=== PATIENT | male | born 1970 | race Caucasian/White ===

== ENCOUNTER 2017-07-27 16:18 | Emergency (ER) | payer MEDICAID ==
[~2017-07-27] VITALS: Ht 172.7 cm; Wt 73.0 kg
[2017-07-27 18:47] VITALS: BP 129/81
== END 2017-07-27 18:51 | disposition home or self-care (01) ==
LOC: ER 17:31
DX: S92.351A Displaced fracture of fifth metatarsal bone, right foot, initial encounter for closed fracture (principal); J45.909 Unspecified asthma, uncomplicated; F17.200 Nicotine dependence, unspecified, uncomplicated; X58.XXXA Exposure to other specified factors, initial encounter; Y93.02 Activity, running; Y92.89 Other specified places as the place of occurrence of the external cause; Y99.8 Other external cause status; Z88.0 Allergy status to penicillin
CPT/HCPCS: 29515; 73610; 73630; 99284

== ENCOUNTER 2018-02-14 23:35 | Emergency (ER) | payer MEDICAID ==
[~2018-02-14] VITALS: Ht 167.6 cm; Wt 72.0 kg
[2018-02-15 02:45] LABS: CHLORIDE 108 mEq/L (98-107); HEMATOCRIT 44.8 % (42.0-52.0); HEMOGLOBIN 15.1 g/dL (14.0-18.0); MEAN CORPUSCULAR HEMOGLOBIN 32.3 pg (28.0-32.0); MEAN CORPUSCULAR VOLUME 95.5 fL (80.0-94.0); PLATELET 284 x1000/uL (130-400); RED BLOOD CELL COUNT 4.69 mill/uL (4.7-6.1); RED CELL DISTRIBUTION WIDTH 13.4 % (11.6-14.6)
[2018-02-15 05:39] VITALS: BP 122/75
== END 2018-02-15 05:41 | disposition home or self-care (01) ==
LOC: ER 23:35
DX: R07.89 Other chest pain (principal); J45.909 Unspecified asthma, uncomplicated; F17.200 Nicotine dependence, unspecified, uncomplicated
CPT/HCPCS: 36415; 71045; 84484; 85027; 93005; 99284

== ENCOUNTER 2021-08-25 16:41 | Emergency (ER) | payer MEDICAID ==
[~2021-08-25] VITALS: Ht 167.6 cm; Wt 65.0 kg
[2021-08-25 16:57] VITALS: BP 126/82
[2021-08-25 17:40] LABS: BASOPHILS % 1.4 % (0.0-2.0); EOSINOPHILS % 8.2 % (0.0-5.0); HEMATOCRIT. 40.3 % (42.0-52.0); HEMOGLOBIN. 13.6 g/dL (14.0-18.0); LYMPHOCYTES % 31.6 % (20.0-50.0); MEAN CORPUSCULAR HEMOGLOBIN 33.4 pg (28.0-32.0); MEAN PLATELET VOLUME 7.6 fl (7.4-10.4); MONOCYTES % 8.3 % (2.0-8.0); NEUTROPHILS % 50.5 % (40.0-76.0); PLATELET 232 x1000/uL (130-400); RED BLOOD CELL COUNT 4.07 mill/uL (4.7-6.1); RED CELL DISTRIBUTION WIDTH 13.9 % (11.6-14.6)
[2021-08-25 17:46] LABS: CHLORIDE 104 mEq/L (98-107)
[2021-08-25 18:00] LABS: ETHANOL BLOOD 327 mg/dL
[2021-08-25 19:13] LABS: CLARITY URINE CLEAR (CLEAR); COLOR URINE YELLOW (YELLOW); KETONES URINE 1+ (NEGATIVE); LEUKOCYTE ESTERASE URINE NEGATIVE (NEGATIVE); NITRITE URINE NEGATIVE (NEGATIVE); OCCULT BLOOD URINE NEGATIVE (NEGATIVE); PH URINE 5.5 (4.5-8.0); PROTEIN URINE NEGATIVE (NEGATIVE); SPECIFIC GRAVITY URINE 1.014 (1.005-1.030)
[2021-08-25] MEDS ORDERED: MECLIZINE 25MG TABLET PO ONE (19:15)
[2021-08-25 19:55] LABS: *AMPHETAMINES SCREEN URINE NEGATIVE (NEGATIVE); *BARBITURATES SCREEN URINE NEGATIVE (NEGATIVE); *BENZODIAZEPINES SCREEN URINE NEGATIVE (NEGATIVE); *COCAINE SCREEN URINE PRESUMTIVE POSITIVE (NEGATIVE); CANNABINOID URINE SCREEN NEGATIVE (NEGATIVE); METHADONE URINE SCREEN NEGATIVE (NEGATIVE); OPIATES URINE SCREEN NEGATIVE (NEGATIVE); PHENCYCLIDINE URINE SCREEN NEGATIVE (NEGATIVE)
[2021-08-25] MEDS ORDERED: MECL-217 MT (20:10)
== END 2021-08-25 20:22 | disposition home or self-care (01) ==
LOC: ER 16:41
DX: R42 Dizziness and giddiness (principal); F14.10 Cocaine abuse, uncomplicated; F10.10 Alcohol abuse, uncomplicated; J45.909 Unspecified asthma, uncomplicated; Z88.0 Allergy status to penicillin; Y90.8 Blood alcohol level of 240 mg/100 ml or more
CPT/HCPCS: 36415; 80053; 80305; 80320; 81003; 84484; 85025; 99284; J8597; G0480

== ENCOUNTER 2021-11-04 09:53 | Emergency (ER) | payer SELFPAY ==
[~2021-11-04] VITALS: Ht 170.2 cm; Wt 73.0 kg
[~2021-11-04 09:53] MED LIST: MECL-217 MT
[2021-11-04 10:02] VITALS: BP 144/91
[2021-11-04] MEDS ORDERED: B50 GT (10:07)
[2021-11-04] MEDS ORDERED: FAMOTIDINE 20MG TABLET PO ONE (10:30)
[2021-11-04] MEDS ORDERED: PREDNISONE 20MG TABLET PO SCH (10:30)
[2021-11-04] MEDS ORDERED: DIPHENHYDRAMINE 25MG CAPSULE PO ONE (10:30)
[2021-11-04] MEDS ORDERED: P20 MT (11:04)
== END 2021-11-04 11:28 | disposition home or self-care (01) ==
LOC: ER 09:53
DX: R21 Rash and other nonspecific skin eruption (principal); J45.909 Unspecified asthma, uncomplicated; Z88.0 Allergy status to penicillin; Z98.890 Other specified postprocedural states
CPT/HCPCS: 99284; J7512; Q0163

== ENCOUNTER 2023-04-10 22:25 | Emergency (ER) | payer MEDICAID, OTHER ==
[~2023-04-10] VITALS: Ht 165.1 cm; Wt 66.0 kg
[~2023-04-10 22:25] MED LIST changes: +B50 GT; +P20 MT
[2023-04-11] MEDS ORDERED: SULF1TAB48 MT (00:56)
[2023-04-11] MEDS ORDERED: METR-167 MT (00:56)
[2023-04-11] MEDS: METRONIDAZOLE 500MG TABLET PO NR (01:50)
[2023-04-11] MEDS: METRONIDAZOLE 500MG TABLET PO ONE (01:50)
[2023-04-11] MEDS: LIDOCAINE HCL 1% 20ML VIAL (Pyxis) INJ INFIL ONE (01:50)
[2023-04-11] MEDS: SULFAMETHOXAZOLE/TRIMETHOPRIM 800/160MG TABLET PO ONE (01:50)
[2023-04-11] MEDS: SULFAMETHOXAZOLE/TRIMETHOPRIM 800/160MG TABLET PO NR (01:51)
[2023-04-11 01:54] VITALS: BP 130/70; PULSE 90; RESP 18; TEMP 98.4
== END 2023-04-11 01:57 | disposition home or self-care (01) ==
LOC: ER 22:25
DX: S51.812A Laceration without foreign body of left forearm, initial encounter (principal); S51.852A Open bite of left forearm, initial encounter; G89.11 Acute pain due to trauma; J45.909 Unspecified asthma, uncomplicated; Z79.899 Other long term (current) drug therapy; W54.0XXA Bitten by dog, initial encounter; Y93.89 Activity, other specified; Y92.89 Other specified places as the place of occurrence of the external cause; Y99.8 Other external cause status
CPT/HCPCS: 99283; 12002; J3490

== ENCOUNTER 2023-04-18 11:38 | Emergency (ER) | payer OTHER ==
[~2023-04-18] VITALS: Ht 172.7 cm; Wt 66.0 kg
[~2023-04-18 11:38] MED LIST changes: +METR-167 MT; +SULF1TAB48 MT
[2023-04-18 11:59] VITALS: BP 120/55; TEMP 98.2; O2SAT 99
[2023-04-18 12:05] VITALS: PULSE 120; RESP 16
[2023-04-18] MEDS ORDERED: BO1 TP (13:14)
== END 2023-04-18 13:32 | disposition home or self-care (01) ==
LOC: ER 11:38
DX: S51.852D Open bite of left forearm, subsequent encounter (principal); J45.909 Unspecified asthma, uncomplicated; Z98.890 Other specified postprocedural states; X58.XXXD Exposure to other specified factors, subsequent encounter
CPT/HCPCS: 99282; Z7610

== ENCOUNTER 2023-10-17 09:31 | Emergency (ER) | payer OTHER ==
[~2023-10-17] VITALS: Ht 167.6 cm; Wt 75.0 kg
[~2023-10-17 09:31] MED LIST changes: +BO1 TP
[2023-10-17 09:45] VITALS: O2SAT 98
[2023-10-17] MEDS: IBUPROFEN 400MG TABLET PO ONE (10:29)
[2023-10-17] MEDS: HYDROCODONE/ACETAMINOPHEN 5/325MG TABLET PO ONE (10:30)
[2023-10-17] MEDS ORDERED: IBUP-2028 MT (11:58)
[2023-10-17] MEDS ORDERED: HYDR-4001 MT (11:58)
[2023-10-17 12:12] VITALS: BP 121/67; PULSE 84; RESP 16; TEMP 98.5
== END 2023-10-17 12:30 | disposition home or self-care (01) ==
LOC: ER 09:31
DX: M25.561 Pain in right knee (principal); M79.10 Myalgia, unspecified site; J45.909 Unspecified asthma, uncomplicated; F17.210 Nicotine dependence, cigarettes, uncomplicated; Z88.0 Allergy status to penicillin; Z79.899 Other long term (current) drug therapy; V19.49XA Pedal cycle driver injured in collision with other motor vehicles in traffic accident, initial encounter; Y93.89 Activity, other specified; Y92.89 Other specified places as the place of occurrence of the external cause; Y99.8 Other external cause status
CPT/HCPCS: 29505; 71045; 72170; 73552; 73562; 73590; 73610; 73630; 99284

== ENCOUNTER 2023-10-28 15:06 | Emergency (ER) | payer OTHER ==
[~2023-10-28] VITALS: Ht 172.7 cm; Wt 66.0 kg
[~2023-10-28 15:06] MED LIST changes: +HYDR-4001 MT; +IBUP-2028 MT
[2023-10-28 15:19] VITALS: BP 99/62; RESP 18; TEMP 98.1; O2SAT 98
[2023-10-28 15:20] VITALS: PULSE 102
== END 2023-10-28 18:45 | disposition left against medical advice (07) ==
LOC: ER 15:06
DX: R68.89 Other general symptoms and signs (principal); Z53.21 Procedure and treatment not carried out due to patient leaving prior to being seen by health care provider

== ENCOUNTER 2023-11-03 14:52 | Emergency (ER) | payer OTHER ==
[~2023-11-03] VITALS: Ht 167.6 cm; Wt 70.0 kg
[2023-11-03 14:59] VITALS: TEMP 98.9; O2SAT 98
[2023-11-03 16:00] VITALS: BP 122/79; PULSE 103; RESP 18
[2023-11-03] MEDS: IBUPROFEN 600MG TABLET PO ONE (16:00)
[2023-11-03] MEDS ORDERED: IBUP-2029 MT (16:29)
== END 2023-11-03 17:40 | disposition home or self-care (01) ==
LOC: ER 14:52
DX: S83.91XA Sprain of unspecified site of right knee, initial encounter (principal); J45.909 Unspecified asthma, uncomplicated; Z88.0 Allergy status to penicillin; Z79.899 Other long term (current) drug therapy; W18.30XA Fall on same level, unspecified, initial encounter; Y93.89 Activity, other specified; Y92.89 Other specified places as the place of occurrence of the external cause; Y99.8 Other external cause status
CPT/HCPCS: 73560; 73610; 99284

== ENCOUNTER 2023-12-22 18:04 | Emergency (ER) | payer OTHER ==
[~2023-12-22] VITALS: Ht 167.6 cm; Wt 63.5 kg
[~2023-12-22 18:04] MED LIST changes: +IBUP-2029 MT
[2023-12-22] MEDS: MORPHINE SULFATE 4 MG/ML INJ (FOR IV/IM USE) IM ONE (21:01)
[2023-12-22] MEDS: ONDANSETRON HCL 4MG/2ML INJ IV STA (21:47)
[2023-12-22] MEDS: MORPHINE SULFATE 4 MG/ML INJ (FOR IV/IM USE) IV STA (21:47)
[2023-12-22 21:50] LABS: BASOPHILS % 0.7 % (0.0-2.0); DIFFERENTIAL COMMENT 0; EOSINOPHILS % 2.9 % (0.0-5.0); HEMATOCRIT. 41.4 % (42.0-52.0); HEMOGLOBIN. 13.9 g/dL (14.0-18.0); LYMPHOCYTES % 28.2 % (20.0-50.0); MEAN CORPUSCULAR HEMOGLOBIN 34.2 pg (28.0-32.0); MEAN CORPUSCULAR HGB CONC 33.5 g/dL (31.0-37.0); MEAN PLATELET VOLUME 7.1 fl (7.4-10.4); MONOCYTES % 7.9 % (2.0-8.0); NEUTROPHILS % 60.3 % (40.0-76.0); PLATELET 231 x1000/uL (130-400); RED BLOOD CELL COUNT 4.06 mill/uL (4.7-6.1); RED CELL DISTRIBUTION WIDTH 14.2 % (11.6-14.6); WHITE BLOOD COUNT 8.8 x1000/uL (4.5-11.0)
[2023-12-22 21:56] LABS: CARBON DIOXIDE 26 mEq/L (21-32); CHLORIDE 109 mEq/L (98-107); SODIUM 142 mEq/L (136-145)
[2023-12-22 21:57] LABS: CALCIUM 9.3 mg/dL (8.7-10.4)
[2023-12-22 22:02] LABS: CREATININE 0.8 mg/dL (0.6-1.3); GLUCOSE 87 mg/dL (70-105); UREA NITROGEN BLOOD 9 mg/dL (9-23)
[2023-12-23 01:36] VITALS: BP 136/82; PULSE 82; RESP 19; TEMP 36.83628; O2SAT 100
== END 2023-12-23 01:50 | disposition short-term general hospital (02) ==
LOC: ER 18:04
DX: S72.001A Fracture of unspecified part of neck of right femur, initial encounter for closed fracture (principal); J45.909 Unspecified asthma, uncomplicated; Z88.0 Allergy status to penicillin; Z79.899 Other long term (current) drug therapy; W18.39XA Other fall on same level, initial encounter; Y93.89 Activity, other specified; Y92.89 Other specified places as the place of occurrence of the external cause; Y99.8 Other external cause status
CPT/HCPCS: 80048; 85025; 36415; 73522; 73630; 72192; 29515; 96372; 99285; J2270; Z7610 ×2; J2405

== ENCOUNTER 2024-03-04 17:01 | Emergency (ER) | payer OTHER ==
[~2024-03-04] VITALS: Ht 167.6 cm; Wt 75.0 kg
[2024-03-04 17:07] VITALS: O2SAT 100
[2024-03-04] MEDS: KETOROLAC 30MG/ML VIAL IM STA (19:33)
[2024-03-04] MEDS ORDERED: NAPR-681 PO (20:28)
[2024-03-04 20:36] VITALS: BP 130/80; PULSE 89; RESP 16; TEMP 37.00296; O2SAT 100
== END 2024-03-04 20:37 | disposition home or self-care (01) ==
LOC: ER 17:01
DX: M25.561 Pain in right knee (principal); J45.909 Unspecified asthma, uncomplicated; Z88.0 Allergy status to penicillin; Z79.899 Other long term (current) drug therapy
CPT/HCPCS: 99283; 73562; 96372; J1885

== ENCOUNTER 2024-05-10 16:07 | Emergency (ER) | payer OTHER ==
[~2024-05-10] VITALS: Ht 167.6 cm; Wt 68.0 kg
[~2024-05-10 16:07] MED LIST changes: +NAPR-681 PO
[2024-05-10 16:12] VITALS: O2SAT 98
[2024-05-10 16:17] VITALS: BP 124/81; PULSE 106; RESP 16; TEMP 36.7; O2SAT 99
[2024-05-10] MEDS: TETANUS, DIPHTHERIA, PERTUSSIS VAC/PF 0.5ML (>10YR OLD) IM ONE (17:08)
[2024-05-10] MEDS: LIDOCAINE HCL/PF 1% 10 MG/ML 5ML VIAL INFIL ONE (17:32)
[2024-05-10] MEDS ORDERED: SULF1TAB48 MT (17:49)
[2024-05-10] MEDS ORDERED: CLIN-194 MT (17:49)
[2024-05-10] MEDS ORDERED: ACET-3800 MT (17:49)
== END 2024-05-10 18:05 | disposition home or self-care (01) ==
LOC: ER 16:15
DX: S51.851A Open bite of right forearm, initial encounter (principal); S51.852A Open bite of left forearm, initial encounter; J45.909 Unspecified asthma, uncomplicated; F10.90 Alcohol use, unspecified, uncomplicated; Z88.0 Allergy status to penicillin; W54.0XXA Bitten by dog, initial encounter; Y93.89 Activity, other specified; Y92.89 Other specified places as the place of occurrence of the external cause; Y99.8 Other external cause status; Y90.9 Presence of alcohol in blood, level not specified
CPT/HCPCS: 90715; 12001; 90471; 99283; J2003; Z7610

== ENCOUNTER 2024-09-30 21:58 | Emergency (ER) | payer MEDICAID, OTHER ==
[~2024-09-30] VITALS: Ht 167.6 cm; Wt 56.0 kg
[~2024-09-30 21:58] MED LIST changes: +ACET-3800 MT; +CLIN-194 MT
[2024-09-30 22:26] VITALS: O2SAT 99
[2024-10-01] MEDS: KETOROLAC 15MG/ML VIAL IM ONE (01:00)
[2024-10-01] MEDS: LIDOCAINE 5% PATCH TOP SCH (01:00)
[2024-10-01] MEDS ORDERED: NAPR-1176 MT (01:28)
[2024-10-01] MEDS ORDERED: LIDO-53 TP (01:28)
[2024-10-01 02:11] VITALS: BP 131/72; PULSE 82; RESP 17; TEMP 36.9; O2SAT 100
== END 2024-10-01 02:49 | disposition home or self-care (01) ==
LOC: ER 21:58
DX: M25.562 Pain in left knee (principal); F10.90 Alcohol use, unspecified, uncomplicated; Z79.1 Long term (current) use of non-steroidal anti-inflammatories (NSAID); Y90.9 Presence of alcohol in blood, level not specified
CPT/HCPCS: 99283; 73564; 96372; J1885